=== PATIENT | female | born 1980 | race Two or more races ===

== ENCOUNTER 2017-08-24 11:06 | Emergency (ER) | payer SELFPAY ==
[~2017-08-24] VITALS: Ht 157.5 cm; Wt 55.0 kg
[~2017-08-24 11:06] MED LIST: [UNRECOGNIZED DRUG - CODE]
[2017-08-24 12:25] LABS: CHLORIDE 100 mEq/L (98-107); PROTHROMBIN TIME 10.8 sec (9.4-11.6)
[2017-08-24 12:26] LABS: BASOPHILS % 0.2 % (0.0-2.0); EOSINOPHILS % 0.5 % (0.0-5.0); HEMATOCRIT. 35.5 % (36.0-48.0); HEMOGLOBIN. 12.1 g/dL (12.0-16.0); LYMPHOCYTES % 16.9 % (20.0-50.0); MEAN CORPUSCULAR HEMOGLOBIN 32.1 pg (28.0-32.0); MEAN CORPUSCULAR VOLUME 94.5 fL (81.0-99.0); MEAN PLATELET VOLUME 9.7 fl (7.4-10.4); MONOCYTES % 6.5 % (2.0-8.0); NEUTROPHILS % 75.9 % (40.0-76.0); PLATELET 233 x1000/uL (130-400); RED BLOOD CELL COUNT 3.76 mill/uL (4.2-5.4); RED CELL DISTRIBUTION WIDTH 16.7 % (11.6-14.6)
[2017-08-24 12:33] LABS: T4 FREE 0.97 ng/dL (0.76-1.46)
[2017-08-24 12:36] LABS: HCG SCREEN NEGATIVE
[2017-08-24 12:37] LABS: CLARITY URINE CLEAR (CLEAR); COLOR URINE YELLOW (YELLOW); KETONES URINE 2+ (NEGATIVE); LEUKOCYTE ESTERASE URINE NEGATIVE (NEGATIVE); NITRITE URINE NEGATIVE (NEGATIVE); OCCULT BLOOD URINE TRACE (NEGATIVE); PROTEIN URINE NEGATIVE (NEGATIVE); SPECIFIC GRAVITY URINE 1.012 (1.005-1.030); UROBILINOGEN URINE 0.2 E.U./dL (0.2-1.0)
[2017-08-24 12:59] LABS: *BARBITURATES SCREEN URINE NEGATIVE (NEGATIVE)
[2017-08-24 13:00] LABS: *AMPHETAMINES SCREEN URINE NEGATIVE (NEGATIVE); *BENZODIAZEPINES SCREEN URINE NEGATIVE (NEGATIVE); *COCAINE SCREEN URINE NEGATIVE (NEGATIVE); CANNABINOID URINE SCREEN NEGATIVE (NEGATIVE); METHADONE URINE SCREEN NEGATIVE (NEGATIVE); OPIATES URINE SCREEN NEGATIVE (NEGATIVE); PHENCYCLIDINE URINE SCREEN NEGATIVE (NEGATIVE)
[2017-08-24] MEDS ORDERED: ASPIRIN 81MG TABLET PO SCH (14:15)
[2017-08-24] MEDS ORDERED: MORPHINE SULFATE 4 MG/ML CPJ (NOT FOR IM USE) IV NR (15:30)
[2017-08-24] MEDS ORDERED: FAMOTIDINE 20MG/2ML VIAL IV NR (15:30)
[2017-08-24] MEDS ORDERED: ONDANSETRON HCL 4MG/2ML VIAL IV NR (15:30)
[2017-08-24] MEDS ORDERED: MAGNESIUM/ALUMINUM HYDROXIDE/SIMETHICONE 30ML UDC PO NR (15:30)
[2017-08-24] MEDS ORDERED: SODIUM CHLORIDE 0.9% 1,000 ML IV ONE (15:45)
[2017-08-24] MEDS ORDERED: IOHEXOL-300 100 ML BOTTLE ONE (16:18)
[2017-08-24] MEDS ORDERED: FENTANYL CITRATE/PF 50MCG/ML 2ML VIAL IV ONE (18:15)
[2017-08-24] MEDS ORDERED: PROCHLORPERAZINE 10MG/2ML VIAL IV ONE (18:15)
[2017-08-24] MEDS ORDERED: PROCHLORPERAZINE 10MG/2ML VIAL IV SCH (18:37)
[2017-08-24 19:16] VITALS: BP 107/73
== END 2017-08-24 19:24 | disposition home or self-care (01) ==
LOC: ER 11:06
DX: K29.70 Gastritis, unspecified, without bleeding (principal); K57.90 Diverticulosis of intestine, part unspecified, without perforation or abscess without bleeding; E03.9 Hypothyroidism, unspecified; F17.200 Nicotine dependence, unspecified, uncomplicated; E87.1 Hypo-osmolality and hyponatremia; E88.89 Other specified metabolic disorders; R74.0 Nonspecific elevation of levels of transaminase and lactic acid dehydrogenase [LDH]; R06.02 Shortness of breath; Z88.8 Allergy status to other drugs, medicaments and biological substances; Z79.899 Other long term (current) drug therapy
CPT/HCPCS: 36415; 71045; 74177; 80053; 80305; 81003; 81025; 83690; 83880; 84439; 84443; 84480; 84481; 84484; 84703; 85025; 85610; 93005; 96361; 96374; 96375; 99285; J0780; J2270; J2405; J3010; J3490; Q9967; Z7610

== ENCOUNTER 2019-08-07 12:37 | Emergency (ER) | payer MEDICAID ==
[~2019-08-07] VITALS: Ht 160 cm; Wt 50.0 kg
[2019-08-07] MEDS ORDERED: LEVO175T7 PO (13:03)
[2019-08-07 14:06] VITALS: BP 110/68
== END 2019-08-07 14:06 | disposition home or self-care (01) ==
LOC: ER 12:37
DX: E03.9 Hypothyroidism, unspecified (principal); Z91.048 Other nonmedicinal substance allergy status
CPT/HCPCS: 99283

== ENCOUNTER 2021-08-28 03:23 | Emergency (ER) | payer MEDICAID ==
[~2021-08-28] VITALS: Ht 157.5 cm; Wt 45.0 kg
[~2021-08-28 03:23] MED LIST changes: +LEVO175T7 PO; -[UNRECOGNIZED DRUG - CODE]
[2021-08-28] MEDS ORDERED: ASPIRIN 81MG TABLET PO ONE (04:00)
[2021-08-28 04:32] LABS: BASOPHILS % 0.4 % (0.0-2.0); CHLORIDE 106 mEq/L (98-107); EOSINOPHILS % 4.8 % (0.0-5.0); HEMATOCRIT. 31.9 % (36.0-48.0); HEMOGLOBIN. 10.5 g/dL (12.0-16.0); LYMPHOCYTES % 36.4 % (20.0-50.0); MEAN CORPUSCULAR HEMOGLOBIN 31.1 pg (28.0-32.0); MEAN CORPUSCULAR VOLUME 94.1 fL (81.0-99.0); MEAN PLATELET VOLUME 8.5 fl (7.4-10.4); NEUTROPHILS % 52.4 % (40.0-76.0); PLATELET 397 x1000/uL (130-400); RED BLOOD CELL COUNT 3.39 mill/uL (4.2-5.4); RED CELL DISTRIBUTION WIDTH 20.3 % (11.6-14.6)
[2021-08-28 05:10] LABS: ETHANOL BLOOD 324 mg/dL
[2021-08-28] MEDS ORDERED: LEVOTHYROXINE SODIUM 150MCG TABLET PO ONE (05:15)
[2021-08-28 05:30] VITALS: BP 125/64
== END 2021-08-28 05:35 | disposition home or self-care (01) ==
LOC: ER 03:49
DX: E03.9 Hypothyroidism, unspecified (principal); R00.2 Palpitations; Z76.0 Encounter for issue of repeat prescription
CPT/HCPCS: 36415; 71045; 80053; 80320; 83880; 84443; 84484; 85025; 93005; 99285; G0480

== ENCOUNTER 2025-04-19 06:22 | Emergency (ER) | payer MEDICAID ==
[~2025-04-19] VITALS: Ht 157.5 cm; Wt 53.0 kg
[2025-04-19 06:24] VITALS: TEMP 98.2; O2SAT 99
[2025-04-19 07:07] LABS: BASOPHILS % 0.7 % (0.0-2.0); EOSINOPHILS % 4.3 % (0.0-5.0); HEMATOCRIT. 34.6 % (36.0-48.0); HEMOGLOBIN. 11.7 g/dL (12.0-16.0); LYMPHOCYTES % 47.6 % (20.0-50.0); MEAN PLATELET VOLUME 9.3 fl (7.4-10.4); MONOCYTES % 5.1 % (2.0-8.0); NEUTROPHILS % 42.3 % (40.0-76.0); PLATELET 264 x1000/uL (130-400); RED BLOOD CELL COUNT 3.34 mill/uL (4.2-5.4); RED CELL DISTRIBUTION WIDTH 13.4 % (11.6-14.6)
[2025-04-19] MEDS: SODIUM CHLORIDE 0.9% 1,000 ML IV ONE (07:08)
[2025-04-19 07:31] LABS: CREATININE 0.4 mg/dL (0.6-1.0)
[2025-04-19 07:32] LABS: UREA NITROGEN BLOOD 5 mg/dL (9-23)
[2025-04-19 07:33] LABS: ASPARTATE AMINOTRANSFERASE 80 IU/L (<34)
[2025-04-19 07:34] LABS: BILIRUBIN DIRECT 0.2 mg/dL (<=3.0); BILIRUBIN TOTAL 0.7 mg/dL (0.1-1.0); PROTEIN TOTAL 6.8 g/dL (6.0-8.3); TROPONIN I HIGH SENSITIVITY < 4 ng/L (3.0-34)
[2025-04-19] MEDS ORDERED: MAGNESIUM 2 G PREMIX 50 ML IV ONE (07:45)
[2025-04-19] MEDS ORDERED: IBUPROFEN 800MG TABLET PO ONE (07:45)
[2025-04-19 07:55] VITALS: BP 110/56; PULSE 87; RESP 16; O2SAT 99
[2025-04-19] MEDS: ONDANSETRON HCL 4MG/2ML INJ IV ONE (07:55)
== END 2025-04-19 08:20 | disposition left against medical advice (07) ==
LOC: ER 06:25 → CANBEDREQ 08:23 → CMPBEDREQ 12:03
DX: R07.89 Other chest pain (principal); R20.2 Paresthesia of skin; F10.90 Alcohol use, unspecified, uncomplicated; Z53.29 Procedure and treatment not carried out because of patient's decision for other reasons; Y90.8 Blood alcohol level of 240 mg/100 ml or more; Z79.899 Other long term (current) drug therapy
CPT/HCPCS: 80076; 80048; 80320; 83735; 85025; 84484; 36415; 71045; 93005; 96361; 96374; 99285; J3475; J2405; J7030; Z7610 ×2; A4606; G0480